=== PATIENT | male | born 1990 | race Caucasian/White ===

== ENCOUNTER 2022-08-14 14:40 | Emergency (ER) | payer BC, SELFPAY ==
[2022-08-14 14:51] VITALS: BP 129/50; PULSE 97; RESP 20; TEMP 38.6; O2SAT 99
--- NOTE | 2022-08-14 15:01 | ED.DENTAL ---
HPI - Dental/Oral General Chief complaint: Dental/Oral Stated complaint: Abcess on right side Time Seen by Provider: 08/14/22 14:59 Source: patient, RN notes reviewed and old records reviewed Mode of arrival: ambulatory Limitations: no limitations History of Present Illness HPI Narrative: 31-year-old male who presents to [facility] with complaints of 1 week duration of dental pain, with 3 days history of right facial swelling. Patient is from out of town and works on [employer] and is here today to get his tooth looked at see if anything can be done for his pain and swelling. Patient has been on Amoxicillin for 3 days with no improvement in his dental pain and swelling has increased to the right side of his face. Patient has used ice and also has been taking Ibuprofen without improvement. MD Complaint: tooth pain Location: Tooth # (31,2) Onset (ago): week(s) (1 week) Severity scale (1-10): 8 Associated symptoms: other (pain and swelling to right face) Treatment prior to arrival: other (Amoxicillin, and Motrin) Related Data Home Medications Medication Instructions Recorded Confirmed amoxicillin 500 mg capsule mg 08/14/22 Allergies Allergy/AdvReac Type Severity Reaction Status Date / Time No Known Allergies Allergy Verified 08/14/22 14:58 Review of Systems Review of Systems: CONSTITUTIONAL: Positive fever, chills, or sweats. ENT: Denies rhinorrhea, congestion, sore throat, or otalgia. Reports dental pain for one week duration with swelling to right side of face and pain for the past 3 days. Patient reports that he had been taking Ibuprofen but its not helping and he also had been applying ice to his face. CARDIOVASCULAR: Denies chest pain, palpitations, or edema. RESPIRATORY: Denies cough or dyspnea, no swelling under tongue. SKIN: Denies rash or itching. MUSCULOSKELETAL: Denies myalgia. NEUROLOGIC: Denies headache All systems reviewed & are unremarkable except as noted in HPI and below PMFSH Surgical History Surgical History (Updated 08/14/22 @ 15:06 by Gely Paredes NP) [place] teeth extracted Social History Social History (Updated 08/14/22 @ 15:06 by Gely Paredes NP) Tobacco type: cigarettes Gender identity (if verbalized by the patient): Male Comments At time of signature, agree with nursing past medical, surgical, social and family history. There is no relevant family history pertinent to the presenting complaint Exam Narrative: GENERAL: Well-appearing, well-nourished, and in no acute distress. HEAD: Normocephalic, atraumatic. EYES: PERRLA and EOMI. ENT: Nares clear, no rhinorrhea or epistaxis. Mucous membranes moist. Missing teeth, broken teeth, caries to #31,2 teeth, surrounding gum swelling with redness with acute swelling of right side of face, no trismus, no Bong's angina noted.reports pain rates at 8/10 aching and throbbing NECK: Supple.no lymphadenopathy CHEST: Clear to auscultation. No respiratory distress.SAO2 99% on room air HEART: Regular rate and rhythm. No murmur heard. Normal peripheral pulses. SKIN: Warm, dry, no rash. NEURO: No focal deficits. Alert and oriented x3. Course Course Emergency Course: Patient is aware of diagnosis, understands and agrees to treatment plan. Anticipatory guidance given. Patient agrees to follow-up as directed and is aware of reasons to seek care at the emergency department. Portions of this record may have been created with voice recognition software Level of Care: Express Care Visit Vital Signs Vital signs: Vital Signs Temperature 38.6 C H 08/14/22 14:51 Pulse Rate 97 08/14/22 14:51 Respiratory Rate 20 08/14/22 14:51 Blood Pressure 129/50 L 08/14/22 14:51 Pulse Oximetry 99 08/14/22 14:51 Oxygen Delivery Room Air 08/14/22 14:51 Temperature 38.6 C H 08/14/22 14:51 Pulse Rate 97 08/14/22 14:51 Respiratory Rate 20 08/14/22 14:51 Blood Pressure 129/50 L 08/14/22 14:51 Pulse Oximetry 99 08/14/22 1
== END 2022-08-14 15:19 | disposition home or self-care (01) ==
PROVIDERS: Emergency Provider Registered Nurse
DX: K04.7 Periapical abscess without sinus (principal); K02.9 Dental caries, unspecified
CPT/HCPCS: 99213; G0463